=== PATIENT | female | born 2000 | race Caucasian/White ===

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

== ENCOUNTER 2021-06-10 09:14 | Emergency (ER) | payer OTHER ==
[~2021-06-10] VITALS: Ht 165.1 cm; Wt 79.4 kg
[2021-06-10 09:26] VITALS: BP 149/74
--- NOTE | 2021-06-10 09:26 | NUR ---
SORE THROAT, PAIN TO SWALLOW X 2 DAYS.
[2021-06-10] MEDS ORDERED: METH4TAB3 PO (09:45)
--- NOTE | 2021-06-10 10:00 | NUR ---
Patient discharged to home in stable condition. Written and verbal after care instructions given. Patient verbalizes understanding of instruction.
== END 2021-06-10 10:20 | disposition home or self-care (01) ==
LOC: ER 09:19
DX: J02.8 Acute pharyngitis due to other specified organisms (principal); L53.9 Erythematous condition, unspecified; Z79.899 Other long term (current) drug therapy